=== PATIENT | female | born 1990 | race Caucasian/White ===

== ENCOUNTER 2016-09-26 05:34 | Inpatient (IN) | payer OTHER ==
[~2016-09-26 05:34] MED LIST: ADOXA100 MG PO; ESSENTIAL OILS; HYDROCODON-ACE1 EA16 PO; INDERAL LA80 M1 PO; KLONOPIN0.5 M1 PO; PROZAC20 MG PO; SINGULAIR10 M1 PO; ZYRTEC10 M7 PO
--- NOTE | 2016-09-28 20:37 | NUR ---
VIRTUAL CARE NOTE: PT. IN BED WITH FRIEND AND MOTHER IN HER ROOM. EDUCATION PROVIDED ON [employer]A CARES AND PT. WAS ABLE TO RETURN BACK PROPER KNOWLEDGE ON [employer]ES. REVIEWED DC PAPERWORK WILL HAVE WHERE TO RECORD MARTHA OUTPUTS AND INCISION CARE WHILE AT HOME. DENIES FURTHER NEEDS AT THIS TIME. INSTRUCTED TO CALL FOR FUTURE NEEDS. STATES VERBAL AGREEMENT.
[2016-09-29] MEDS ORDERED: PERCOCET 5-3251 EACH (13:38)
== END 2016-09-29 14:37 | DRG 581 ==
LOC: NUCMED 05:34 → SHSC 05:42 → ORW 09:30 → PACU 12:57 → SHSC 14:30 → 5WD 16:00
PROVIDERS: ADMIT Surgery
PROC: 0HRV0JZ Replacement of Bilateral Breast with Synthetic Substitute, Open Approach (ICD-10-PCS; principal; 2016-09-26)
PROC: 07B60ZX Excision of Left Axillary Lymphatic, Open Approach, Diagnostic (ICD-10-PCS; 2016-09-26)
PROC: 0HTV0ZZ Resection of Bilateral Breast, Open Approach (ICD-10-PCS; 2016-09-26)
DX: C50.812 Malignant neoplasm of overlapping sites of left female breast (principal); F32.9 Major depressive disorder, single episode, unspecified; J45.909 Unspecified asthma, uncomplicated; G43.709 Chronic migraine without aura, not intractable, without status migrainosus; Z88.2 Allergy status to sulfonamides; Z88.0 Allergy status to penicillin; Z88.1 Allergy status to other antibiotic agents; Z87.442 Personal history of urinary calculi; Z72.0 Tobacco use; Z80.3 Family history of malignant neoplasm of breast; Z80.1 Family history of malignant neoplasm of trachea, bronchus and lung; Z80.8 Family history of malignant neoplasm of other organs or systems
CPT/HCPCS: A9520; C1713; C1781; C1789; J1100; J1956; J2250; J2270; J2405; J2550; J2765; J2795; J3010; J3370